=== PATIENT | male | born 1950 | race Caucasian/White ===

== ENCOUNTER 2018-11-02 05:21 | Emergency (ER) | payer MEDICARE ==
[~2018-11-02] VITALS: Ht 180.3 cm; Wt 86.4 kg
[~2018-11-02 05:21] MED LIST: ASPI-1265 PO; CLON-528 PO; CYCL-394 PO; NITR0.4T48 SL; NORCO10T PO
[2018-11-02 05:57] LABS: BASOPHILS % (AUTO) 0.3 % (0-1); EOSINOPHILS % (AUTO) 0.7 % (0-6); HEMATOCRIT 47.8 % (42.0-52.0); HEMOGLOBIN 16.7 g/dl (14.0-17.9); LYMPHOCYTES # (AUTO) 0.6 X10'3 (1.1-4.8); MEAN CORPUSCULAR HEMOGLOBIN 30.8 PG (27.0-31.0); MEAN CORPUSCULAR HGB CONC 34.8 g/dL (33.0-36.5); MEAN CORPUSCULAR VOLUME 88.5 FL (78-98); MEAN PLATELET VOLUME 8.1 FL (7.4-10.4); MONOCYTES # (AUTO) 1.3 X10'3 (0-0.9); MONOCYTES % (AUTO) 18.7 % (2-12); NEUTROPHILS # (AUTO) 5.1 X10'3 (1.8-7.7); NEUTROPHILS % (AUTO) 72.3 % (42-75); PLATELET COUNT 195 X10'3 (140-440); RED BLOOD COUNT 5.41 X10'6 (4.70-6.10); RED CELL DISTRIBUTION WIDTH 13.6 % (11.5-14.5)
[2018-11-02] MEDS ORDERED: HYDR12.5 PO (05:58)
[2018-11-02 06:10] LABS: INR 1.1 INR; PROTHROMBIN TIME 10.8 SECONDS (9.0-12.0)
[2018-11-02 06:11] LABS: PARTIAL THROMBOPLASTIN TIME 26 SECONDS (22-32)
[2018-11-02] MEDS ORDERED: ondansetron/PF 4mg/2ml inj IV ONE (06:15)
[2018-11-02] MEDS ORDERED: morphine 4 MG/ML inj SYRINge IV ONE (06:15)
[2018-11-02 06:18] LABS: ALANINE AMINOTRANSFERASE 139 U/L (12-78); ALKALINE PHOSPHATASE 117 IU/L (46-116); ANION GAP 7 (8-16); ASPARTATE AMINO TRANSFERASE 68 U/L (10-37); BILIRUBIN,TOTAL 0.8 MG/DL (0.1-1.0); BLOOD UREA NITROGEN 15 MG/DL (7-18); BUN/CREATININE RATIO 14.7 (5.4-32.0); CHLORIDE 102 MMOL/L (99-107); CREATININE 1.02 MG/DL (0.60-1.10); GLUCOSE 101 MG/DL (70-104); MAGNESIUM 1.8 MG/DL (1.5-2.4); POTASSIUM 3.6 MMOL/L (3.5-5.1); SODIUM 138 MMOL/L (135-145); TOTAL CARBON DIOXIDE 28.7 MMOL/L (24-32); TOTAL PROTEIN 8.2 G/DL (6.4-8.2); eGFR 73 ML/MIN
[2018-11-02] MEDS ORDERED: acetaminophen 325mg tablet PO ONE (06:20)
[2018-11-02 08:50] LABS: D-DIMER 0.58 MG/L FEU (0-0.50)
[2018-11-02] MEDS ORDERED: BENZ-16 PO (10:00)
[2018-11-02 10:04] LABS: CLARITY,URINE CLEAR (Clear); COLOR,URINE YELLOW (Yellow); GLUCOSE, URINE NEGATIVE (Neg); KETONES,URINE NEGATIVE (Neg); LEUKOCYTE ESTERASE ,URINE NEGATIVE (Neg); NITRITES, URINE NEGATIVE (Neg); OCCULT BLOOD,URINE NEGATIVE (Neg); PROTEIN,URINE NEGATIVE (Neg); UROBILINOGEN,URINE 0.2 E.U/dL (0.2-1.0)
[2018-11-02 10:05] LABS: UA COLLECTION TYPE NON-SPECIFIED
[2018-11-02 10:13] VITALS: BP 146/81
== END 2018-11-02 10:16 | disposition home or self-care (01) ==
LOC: ER 05:22
DX: R07.89 Other chest pain (principal); J40 Bronchitis, not specified as acute or chronic; I25.10 Atherosclerotic heart disease of native coronary artery without angina pectoris; E78.00 Pure hypercholesterolemia, unspecified; I25.2 Old myocardial infarction; E78.5 Hyperlipidemia, unspecified; Z95.5 Presence of coronary angioplasty implant and graft; Z79.899 Other long term (current) drug therapy; Z79.82 Long term (current) use of aspirin; Z88.2 Allergy status to sulfonamides; Z88.8 Allergy status to other drugs, medicaments and biological substances; Z88.6 Allergy status to analgesic agent; Z95.1 Presence of aortocoronary bypass graft
CPT/HCPCS: 36415; 71045; 80053; 81003; 83605; 83735; 83880; 84484; 85025; 85379; 85610; 85730; 87040; 93005; 96374; 96375; 99284; J2270; J2405

== ENCOUNTER 2019-04-16 08:44 | Emergency (ER) | payer MEDICARE ==
[~2019-04-16] VITALS: Ht 180.3 cm; Wt 86.4 kg
[~2019-04-16 08:44] MED LIST changes: +HYDR12.5 PO
--- NOTE | 2019-04-16 10:08 | NUR ---
PT IS RESTING QUIETLY ON GURNEY, WAITING TO BE EVALUATED BY PROVIDER, DRESSING DRY AND INTACT, NO BLEEDING, DRESSING REMOVED, SMALL SKIN TEAR TO LEFT MID FOREARM, SMALL LAC TO LEFT HAND
[2019-04-16] MEDS ORDERED: TETanus/Pertussis (Acell)/Diphther VAC/PF (Tdap-Adult) 0.5ml syringe IM ONE (10:15)
[2019-04-16] MEDS ORDERED: bacitracin 15gm ointment TP ONE (10:15)
--- NOTE | 2019-04-16 10:56 | NUR ---
field technical assistant at bedside for wound care orders
[2019-04-16 11:24] VITALS: BP 145/96
== END 2019-04-16 11:25 | disposition home or self-care (01) ==
LOC: ER 08:45
DX: S60.512A Abrasion of left hand, initial encounter (principal); S50.812A Abrasion of left forearm, initial encounter; I25.10 Atherosclerotic heart disease of native coronary artery without angina pectoris; E78.00 Pure hypercholesterolemia, unspecified; I25.2 Old myocardial infarction; Z88.2 Allergy status to sulfonamides; Z88.8 Allergy status to other drugs, medicaments and biological substances; Z88.6 Allergy status to analgesic agent; Z79.899 Other long term (current) drug therapy; Z98.61 Coronary angioplasty status; W22.8XXA Striking against or struck by other objects, initial encounter; Y93.89 Activity, other specified; Y92.89 Other specified places as the place of occurrence of the external cause; Y99.8 Other external cause status
CPT/HCPCS: 73130; 90471; 99283